=== PATIENT | male | born 1970 | race Caucasian/White ===

== ENCOUNTER 2018-11-16 09:45 | Inpatient (IN) ==
[2018-11-16] MEDS ORDERED: HEPARIN 1,000 UNIT/1 ML VIAL IV STA (09:54)
[2018-11-16] MEDS ORDERED: HEPARIN 5,000 UNIT/1 ML VIAL ONE (09:55)
[2018-11-16] MEDS ORDERED: ONDANSETRON 4 MG/2 ML VIAL IV STA (09:56)
[2018-11-16] MEDS ORDERED: MORPHINE 4 MG/1 ML VIAL IV STA (09:56)
[2018-11-16] MEDS ORDERED: MORPHINE 4 MG/1 ML VIAL ONE (09:57)
[2018-11-16] MEDS ORDERED: ONDANSETRON 4 MG/2 ML VIAL ONE ×2 (09:57→11:10)
[2018-11-16] MEDS ORDERED: LIDOCAINE 1% 20 ML VIAL ONE (10:01)
[2018-11-16] MEDS ORDERED: HEPARIN/NACL 0.9% 2 UNITS/ML 1,000 ML IV ONE (10:01)
[2018-11-16] MEDS ORDERED: NITROGLYCERIN DRIP 50 MG/250 ML BOTTLE IV ONE (10:02)
[2018-11-16] MEDS ORDERED: VERAPAMIL 5 MG/2 ML VIAL ONE (10:02)
[2018-11-16] MEDS ORDERED: ASPIRIN CHEW 81 MG TABLET PO ONE (10:09)
[2018-11-16] MEDS ORDERED: HYDROmorphone 2 MG/1 ML VIAL ONE (10:10)
[2018-11-16] MEDS ORDERED: MIDAZOLAM 2 MG/2 ML VIAL ONE (10:10)
[2018-11-16 10:42] LABS: Basophils # 0.1 10*3/uL (0.0-0.2); Basophils % 0.7 % (0.0-0.8); Eosinophils # 0.2 10*3/uL (0.0-0.87); Hematocrit 48.7 VOL% (42.0-52.0); Hemoglobin 15.9 GM/DL (14.0-18.0); Immature Granulocytes % 0.7 %; Immature Granulocytes Absolute 0.08 #; Lymphocytes # 4.7 10*3/uL (1.4-4.0); Lymphocytes % 38.6 % (21.2-54.2); Mean Corpuscular HGB Conc 32.6 GM/DL (32-36); Mean Corpuscular Volume 87.3 FL (87-102); Mean Platelet Volume 9.3 FL (9.6-12.0); Monocytes % 12.2 % (1.7-12.7); Neutrophils % 45.8 % (38.7-73.9); Platelet Count 333 T/CUMM (130-400); Red Blood Count 5.58 MC/CUMM (3.8-5.5); Red Cell Distribution Width 13.4 % (9.3-17.3)
[2018-11-16 10:47] LABS: INR 0.9; PT Patient Result 9.6 SECS
[2018-11-16] MEDS ORDERED: EPTIFIBATIDE 20,000 MCG/10 ML VIAL ONE (10:49)
[2018-11-16] MEDS ORDERED: EPTIFIBATIDE 75 MG/100 ML BOTTLE IV ONE (10:49)
[2018-11-16] MEDS ORDERED: TICAGRELOR 90 MG TABLET ONE (10:52)
[2018-11-16 10:55] LABS: Alanine Aminotransferase 80 U/L (16-61); Albumin 3.9 G/DL (3.4-5.0); Alkaline Phosphatase 87 U/L (45-117); Aspartate Amino Transferase 36 U/L (0-37); Blood Urea Nitrogen 22 MG/DL (7-18); Calcium 9.8 MG/DL (8.5-10.1); Glucose 103 MG/DL (74-106); Osmolality,Calculated 283.3 MOS/KG (273-304); Total Protein 8.1 G/DL (6.4-8.3)
[2018-11-16 10:56] LABS: Troponin I 0.349 NG/ML (0.00-0.045)
[2018-11-16 11:51] LABS: Troponin I 0.295 NG/ML (0.00-0.045)
[2018-11-16] MEDS ORDERED: PROMETHAZINE INJ 25 MG in SODIUM CHLORIDE 0.9% 50 ML IV ONE (12:30)
[2018-11-16] MEDS ORDERED: diphenhydrAMINE CAP 25 MG CAPSULE PO PRN (13:47)
[2018-11-16] MEDS ORDERED: MAGNESIUM HYDROXIDE SUSP 30 ML UDCUP PO PRN (13:47)
[2018-11-16] MEDS ORDERED: DOCUSATE SODIUM 100 MG CAPSULE PO PRN (14:55)
[2018-11-16] MEDS ORDERED: ZALEPLON 5 MG CAPSULE PO PRN (14:55)
[2018-11-16] MEDS ORDERED: ACETAMINOPHEN 325 MG TABLET PO PRN (14:55)
[2018-11-16] MEDS ORDERED: ONDANSETRON 4 MG/2 ML VIAL IV PRN (14:55)
[2018-11-16] MEDS ORDERED: ENOXAPARIN 40 MG/0.4 ML SYRINGE SUBCUT SCH (15:00)
[2018-11-16 15:13] LABS: Troponin I 0.501 NG/ML (0.00-0.045)
[2018-11-16] MEDS ORDERED: ROSUVASTATIN 20 MG TABLET PO SCH (21:00)
[2018-11-16] MEDS: CARVEDILOL 3.125 MG TABLET PO SCH (21:50)
[2018-11-16] MEDS: TICAGRELOR 90 MG TABLET PO SCH (21:50)
[2018-11-17 04:25] LABS: Basophils % 0.3 % (0.0-0.8); Eosinophils # 0.1 10*3/uL (0.0-0.87); Hematocrit 42.5 VOL% (42.0-52.0); Hemoglobin 13.8 GM/DL (14.0-18.0); Immature Granulocytes % 0.7 %; Immature Granulocytes Absolute 0.08 #; Lymphocytes # 2.7 10*3/uL (1.4-4.0); Lymphocytes % 22.3 % (21.2-54.2); Mean Corpuscular HGB Conc 32.5 GM/DL (32-36); Mean Corpuscular Volume 88.7 FL (87-102); Mean Platelet Volume 9.3 FL (9.6-12.0); Monocytes % 10.5 % (1.7-12.7); Neutrophils % 65.2 % (38.7-73.9); Platelet Count 239 T/CUMM (130-400); Red Blood Count 4.79 MC/CUMM (3.8-5.5); Red Cell Distribution Width 13.5 % (9.3-17.3)
[2018-11-17 04:46] LABS: Calcium 8.6 MG/DL (8.5-10.1); Osmolality,Calculated 281.3 MOS/KG (273-304)
[2018-11-17 04:50] LABS: Calcium 8.4 MG/DL (8.5-10.1); Osmolality,Calculated 281.3 MOS/KG (273-304); Risk Ratio 6.34; VLDL CHOLESTEROL 54.4 MG/DL
[2018-11-17 04:51] LABS: Hypochromasia 1+; Platelet Estimate Adequate
[2018-11-17 06:03] VITALS: BP 124/84
[2018-11-17] MEDS ORDERED: PANTOPRAZOLE 40 MG TABLET PO SCH (09:00)
[2018-11-17] MEDS ORDERED: LOSARTAN 25 MG TABLET PO SCH (09:00)
[2018-11-17] MEDS ORDERED: ASPIRIN EC 81 MG TABLET PO SCH (09:00)
[2018-11-17] MEDS: TICAGRELOR 90 MG TABLET PO SCH (09:25)
[2018-11-17] MEDS: CARVEDILOL 3.125 MG TABLET PO SCH (09:25)
== END 2018-11-17 14:50 | disposition home or self-care (01) | DRG 247 ==
LOC: N.ED 09:45 → N.CC 10:03 → N.EDINP 10:36 → N.CC 11:28
PROVIDERS: ADMIT Internal Medicine Cardiovascular Disease; ATTEND Internal Medicine Cardiovascular Disease
PROC: CLCCHCL (ICD-10-PCS; 2018-11-16 10:45)

== ENCOUNTER 2021-11-09 00:45 | Observation (INO) ==
[2021-11-09 01:15] LABS: Basophils # 0.1 10*3/uL (0.0-0.2); Basophils % 0.7 % (0.0-0.8); Eosinophils # 0.2 10*3/uL (0.0-0.87); Eosinophils % 2.6 % (0.00-10.9); Hematocrit 47.6 VOL% (42.0-52.0); Hemoglobin 15.9 GM/DL (14.0-18.0); Immature Granulocytes % 0.2 %; Immature Granulocytes Absolute 0.02 #; Lymphocytes # 3.2 10*3/uL (1.4-4.0); Lymphocytes % 38.2 % (21.2-54.2); Mean Corpuscular HGB Conc 33.4 GM/DL (32-36); Mean Corpuscular Volume 86.9 FL (87-102); Mean Platelet Volume 8.7 FL (9.6-12.0); Monocytes % 11.9 % (1.7-12.7); Neutrophils % 46.4 % (38.7-73.9); Platelet Count 260 T/CUMM (130-400); Red Blood Count 5.48 MC/CUMM (3.8-5.5); Red Cell Distribution Width 13.5 % (9.3-17.3); White Blood Count 8.5 T/CUMM (4-12)
[2021-11-09] MEDS ORDERED: hydrALAZINE 20 MG/1 ML VIAL IV STA ×2 (01:19→02:09)
[2021-11-09 01:25] LABS: INR 0.9; PT Patient Result 10.1 SECS (10.1-12.1); Partial Thromboplastin Time 25.7 SECS (23.7-32.9)
[2021-11-09 01:37] LABS: Alanine Aminotransferase 33 U/L (16-61); Albumin 3.8 G/DL (3.4-5.0); Alkaline Phosphatase 66 U/L (45-117); Aspartate Amino Transferase 14 U/L (0-37); Bilirubin,Total < 0.39 MG/DL (0.20-1.00); Blood Urea Nitrogen 17 MG/DL (7-18); Calcium 9.8 MG/DL (8.5-10.1); Carbon Dioxide 30 MMOL/L (21-32); Chloride 110 MMOL/L (98-107); Glucose 95 MG/DL (74-106); Osmolality,Calculated 287.8 MOS/KG (273-304); Potassium 4.2 MMOL/L (3.5-5.1); Sodium 144 MMOL/L (136-145); Total Protein 7.4 G/DL (6.4-8.2)
[2021-11-09] MEDS ORDERED: METOPROLOL TARTRATE 5 MG/5 ML VIAL IV STA (01:42)
[2021-11-09] MEDS ORDERED: MAGNESIUM SULF RIDER 2 GM/50 ML PREMIX IV PRN (01:48)
[2021-11-09] MEDS ORDERED: MAGNESIUM SULF RIDER 4 GM/100 ML PREMIX IV PRN (01:48)
[2021-11-09] MEDS ORDERED: ENOXAPARIN 80 MG/0.8 ML SYRINGE SUBCUT STA (01:51)
[2021-11-09] MEDS ORDERED: ASPIRIN 325 MG TABLET PO STA (01:51)
[2021-11-09] MEDS ORDERED: MORPHINE 2 MG/1 ML SYRINGE IV STA (01:58)
[2021-11-09] MEDS ORDERED: ONDANSETRON 4 MG/2 ML VIAL IV STA (01:58)
[2021-11-09] MEDS ORDERED: METOPROLOL TARTRATE 5 MG/5 ML VIAL IV SCH (02:30)
[2021-11-09] MEDS: ONDANSETRON 4 MG/2 ML VIAL IV PRN ×2 (04:02→14:11)
[2021-11-09] MEDS ORDERED: NITROGLYCERIN 2% OINT 1 INCH/GM PACK TOP STA (04:04)
[2021-11-09] MEDS ORDERED: PANTOPRAZOLE 40 MG TABLET PO SCH (09:00)
[2021-11-09] MEDS ORDERED: ROSUVASTATIN 20 MG TABLET PO SCH (09:15)
[2021-11-09] MEDS ORDERED: CLOPIDOGREL 75 MG TABLET PO SCH (09:30)
[2021-11-09] MEDS ORDERED: ASPIRIN EC 81 MG TABLET PO SCH (09:30)
[2021-11-09] MEDS ORDERED: ACETAMINOPHEN 325 MG TABLET PO PRN (10:02)
[2021-11-09] MEDS ORDERED: diphenhydrAMINE CAP 50 MG CAPSULE PO ONE (10:20)
[2021-11-09] MEDS ORDERED: DIAZEPAM 5 MG TABLET PO ONE (10:20)
[2021-11-09] MEDS ORDERED: SODIUM CHLORIDE 0.9% 1,000 ML IV SCH (10:30)
[2021-11-09] MEDS ORDERED: NITROGLYCERIN 2% OINT 1 INCH/GM PACK TOP ONE (11:00)
[2021-11-09] MEDS ORDERED: HEPARIN/NACL 0.9% 2 UNITS/ML 2,000 UNIT/1,000 ML BAG IV ONE (12:36)
[2021-11-09] MEDS ORDERED: HYDROmorphone 1 MG/1 ML SYRINGE ONE ×2 (12:49→13:08)
[2021-11-09] MEDS ORDERED: MIDAZOLAM 2 MG/2 ML VIAL ONE (12:49)
[2021-11-09] MEDS ORDERED: TIROFIBAN 5,000 MCG/100 ML PREMIX IV ONE (13:13)
[2021-11-09] MEDS ORDERED: ENOXAPARIN 30 MG/0.3 ML SYRINGE ONE (13:15)
[2021-11-09] MEDS ORDERED: CLOPIDOGREL 300 MG TABLET ONE (13:27)
[2021-11-09 16:23] VITALS: BP 111/70
== END 2021-11-09 18:30 | disposition home or self-care (01) ==
LOC: N.ED 00:45 → N.EDINP 00:45 → N.2W 07:55
PROVIDERS: ADMIT Family Medicine; ATTEND Family Medicine
PROC: CLCCHCL (ICD-10-PCS; 2021-11-09 13:45)